=== PATIENT | female | born 1935 | race Caucasian/White ===

== ENCOUNTER → 2023-10-15 12:41 | Outpatient (REF) | payer OTHER, SELFPAY | LOC: DHCBC MAIN 12:41 | PROVIDERS: ATTENDING PHYSICIAN Internal Medicine Cardiovascular Disease; FAMILY PHYSICIAN Internal Medicine | DX: I35.0 Nonrheumatic aortic (valve) stenosis (principal) | CPT/HCPCS: 93306 ==